=== PATIENT | female | born 1975 | race Caucasian/White ===

== ENCOUNTER 2016-08-03 10:58 | Emergency (ER) | payer OTHER ==
[~2016-08-03] VITALS: Ht 167.6 cm; Wt 98.2 kg
[2016-08-03 10:48] VITALS: BP 144/97
== END 2016-08-03 12:11 | disposition home or self-care (01) ==
LOC: EME 10:58 → EDBD 10:58 → EME 12:11
DX: S16.1XXA Strain of muscle, fascia and tendon at neck level, initial encounter (principal); S20.219A Contusion of unspecified front wall of thorax, initial encounter; M25.531 Pain in right wrist; M25.561 Pain in right knee; V47.6XXA Car passenger injured in collision with fixed or stationary object in traffic accident, initial encounter
CPT/HCPCS: 99281; 99283